=== PATIENT | female | born 1970 | race Caucasian/White ===

== ENCOUNTER 2023-06-09 20:16 | Observation (INO) ==
[2023-06-09] MEDS ORDERED: SODIUM CHLORIDE 0.9% 1000ML 1,000 ML IV SCH (20:53)
[2023-06-09 20:58] LABS: Basophils # (auto) 0.03 K/uL (0-0.2); Basophils % (auto) 0.4 %; Eosinophils # (auto) 0.29 K/uL (0-0.50); Eosinophils % (auto) 4.3 %; Hematocrit (blood only) 41.6 % (37.0-47.0); Hemoglobin 14.3 g/dl (12.0-16.0); Immature Granulocytes # (auto) 0.01 K/uL (0.01-0.20); Immature Granulocytes % (auto) 0.1 %; Lymphocytes % (auto) 33.9 %; Mean Corpuscular Hemoglobin 30.2 pg (25.0-34.0); Mean Corpuscular Hgb Conc 34.4 g/dL (32.0-36.0); Mean Corpuscular Volume 87.9 fL (80.0-100.0); Mean Platelet Volume 9.1 fL (9.4-12.4); Monocytes # (auto) 0.53 K/uL (0.11-0.59); Monocytes % (auto) 7.8 %; Neutrophils # (auto) 3.63 K/uL (1.40-6.50); Neutrophils % (auto) 53.5 %; Platelet Count 242 K/uL (130-400); RDW Coefficient of Variation 12.1 % (11.5-14.5); RDW Standard Deviation 39.3 fL (36.4-46.3); Red Blood Count 4.73 M/uL (4.20-5.40); White Blood Count 6.79 K/ul (4.8-10.8)
--- NOTE | 2023-06-09 21:12 | Emergency Department Note ---
History of Present Illness General Chief complaint: Abdominal Pain Stated complaint: LOWER RIGHT ABDOMINAL PAIN Time Seen by Provider: 06/09/23 20:28 History of Present Illness Maximum Pain Intensity: 4 Patient is a 52-year-old female with past medical history that is significant for hypertension and aortic dissection status post who presents the emergency department for evaluation of abdominal pain. She reports a constant, aching right lower quadrant kathleen pain that started yesterday morning. Repair she currently rates her pain a 4/10. Initially she thought it was from her IBS, but as the pain persisted she became more concerned. She reports feeling gassy and having a poor appetite, but no nausea or vomiting. No urinary symptoms. Stools are chronically loose status postcholecystectomy, and she denies any changes in this. She is postmenopausal. No fevers. She tried taking Tylenol for her pain. She had some instant mashed potatoes about 4 hours ago. Home Medications Medication Instructions Recorded Confirmed Type acetaminophen 500 mg tablet 1,000 mg PO Q6H PRN Pain 08/16/19 11/25/20 History (Tylenol Extra Strength) albuterol sulfate 90 mcg/actuation 2 puff inhalation Q4 PRN Wheezing 08/16/19 11/25/20 History aerosol inhaler (Ventolin HFA) aspirin 81 mg chewable tablet 81 mg PO DAILY 08/16/19 11/25/20 History (Children's Aspirin) carisoprodol 250 mg tablet (Soma) 250 mg PO UD PRN Muscle Pain 08/16/19 11/25/20 History docusate sodium 100 mg capsule 100 mg PO BID PRN Constipation 08/16/19 11/25/20 History (Col-Rite) metoprolol tartrate 100 mg tablet 100 mg PO Q12 08/16/19 11/25/20 History (Lopressor) amlodipine 5 mg tablet 5 mg PO DAILY 11/25/20 11/25/20 History fluticasone propionate 50 2 spray intranasal DAILY PRN Nasal 11/25/20 11/25/20 History mcg/actuation nasal Congestion spray,suspension (Flonase Allergy Relief) lisinopril 40 mg tablet 40 mg PO DAILY 11/25/20 11/25/20 History loratadine 10 mg tablet 10 mg PO DAILY PRN allergies 11/25/20 11/25/20 History omeprazole 40 mg capsule,delayed 40 mg PO DAILY PRN Acid Reflux 11/25/20 11/25/20 History release Allergies Allergy/AdvReac Type Severity Reaction Status Date / Time furosemide [From Lasix] AdvReac possible Verified 11/25/20 15:44 pancreatitis Past Med/Surg History Medical History Aortic dissection Hypertension Surgical History Mechanical heart 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 [employer] Feels Safe at Home: Yes Review of Systems A total of 10 systems reviewed and were otherwise negative Physical Exam Vital Signs Vital Signs - 24 hr 06/09/23 20:21 Temperature 36.9 C Temperature Source Temporal Artery Scan Pulse Rate 96 H Pulse Rhythm Regular Pulse Strength Normal Respiratory Rate 20 Respiratory Effort / Characteristics Non-Labored Spontaneous Respiratory Depth Normal Blood Pressure 144/86 H Blood Pressure Mean 105 Blood Pressure Position Sitting Pulse Oximetry 93 Oxygen Delivery Method Room Air Sepsis Recent Fever Within 48 Hours No Sepsis New/Unexplained Change in Mental Status N/A Sepsis Action Taken by Nursing No Action Required CONSTITUTIONAL: Well-appearing 52-year-old female who is awake and alert and in no acute distress laying on the gurney. EYES: Pupils equal, round, reactive to light and accommodation. EOMs intact without nystagmus. Sclera are anicteric. CARDIOVASCULAR: Regular rate and rhythm, systolic ejection murmur noted. Well- healed surgical scars. Peripheral pulses easy to palpable. RESPIRATORY: Breath sounds equal and clear to auscultation. GI: Bowel sounds are present. Abdomen is soft, obese, nontender to percussion throughout and tender to palpation with guarding in the right lower quadrant. MUSCULOSKELETAL: Full range of motion of extremities x 4 with good strength. No cyanosis, edema, joint tenderness or swelling. No deformity. INTEGUMENTARY: No lesions or rash, normal skin turgor. Course Course The patient was seen and assessed as above. External medical records were reviewed. She presents the emergency department for evaluation of right lower quadrant abdominal pain starting greater than 24 hours ago. IV lock was initiated and laboratory studies were collected. She was hydrated with normal saline solution. She was offered but declined medication for discomfort. CBC with differential, CMP, lipase and urinalysis were collected. CT scan of the abdomen and pelvis with IV contrast was obtained. Laboratory studies per my interpretation note a normal white count at 6700. No anemia, no left shift. No thrombocytopenia. No significant electrolyte imbalance noted. Renal functions are normal. Transaminases are not elevated and lipase is not indicative of acute pancreatitis. Urine microscopy is clear without signs of infection. CT scan per my interpretation and Stat Rad report notes the appendix to be upper limits of normal measuring 10 mm in diameter with possible surrounding inflammation representing a mild early acute appendicitis. No evidence for rupture or abscess. Scattered gas fluid levels within the nondilated colon suggest mild ileus or enteritis. No free air. The patient was reassessed. Laboratory studies and CT scan findings were discussed with her. Consultation was placed with general surgery, Dr. Alfonso, case also reviewed with ED case management social worker. Patient will be evaluated by general surgery for likely surgical intervention. COVID test was ordered per surgery request. Patient was updated at the bedside. Administered Medications Discontinued Medications Sodium Chloride (Nss 1000ml) 1,000 mls @ 999 mls/hr IV .Q1H1M [facility] Stop: 06/09/23 21:53 Last Infusion: 06/09/23 21:56 Dose: 0 mls/hr Documented By: Admin: 06/09/23 20:55 Dose: 999 mls/hr Documented By: JADA Ioversol (Optiray 350 500ml) 91 ml IV ONCE ONE Stop: 06/09/23 21:26 Last Admin: 06/09/23 21:26 Dose: 91 ml Documented By: RAMIN Medical Decision Making Differential Diagnosis Differential diagnoses considered included urinary tract infection, kidney stone, pyelonephritis, appendicitis, hernia, shingles, ovarian cyst, ovarian torsion, bowel obstruction, perforation, mass or malignancy, abscess, among others. Medical Records Attestation: I reviewed the patient's medical records. Home Medications Current Medication List: was personally reviewed by me Laboratory Data Attestation: I reviewed the patient's lab results. 06/09/23 20:40 06/09/23 20:40 Lab Results 06/09/23 06/09/23 06/09/23 Range/Units 20:40 20:40 20:45 WBC 6.79 (4.8-10.8) K/ul RBC 4.73 (4.20-5.40) M/uL Hgb 14.3 (12.0-16.0) g/dl Hct 41.6 (37.0-47.0) % MCV 87.9 (80.0-100.0) fL MCH 30.2 (25.0-34.0) pg MCHC 34.4 (32.0-36.0) g/dL RDW Std Deviation 39.3 (36.4-46.3) fL RDW Coeff of Alex 12.1 (11.5-14.5) % Plt Count 242 (130-400) K/uL MPV 9.1 L (9.4-12.4) fL Immature Gran % (Auto) 0.1 % Neut % (Auto) 53.5 % Lymph % (Auto) 33.9 % [place] % (Auto) 7.8 % Eos % (Auto) 4.3 % Baso % (Auto) 0.4 % Neut # (Auto) 3.63 (1.40-6.50) K/uL Lymph # (Auto) 2.30 (1.2-3.4) K/uL [place] # (Auto) 0.53 (0.11-0.59) K/uL Eos # (Auto) 0.29 (0-0.50) K/uL Baso # (Auto) 0.03 (0-0.2) K/uL Immature Gran # (Auto) 0.01 (0.01-0.20) K/uL Sodium 138 (136-145) mmol/L Potassium 3.9 (3.5-5.1) mmol/L Chloride 104 (98-107) mmol/L Carbon Dioxide 29 (21-32) mmol/L Anion Gap 5 (3-11) BUN 15 (6-23) mg/dl Creatinine 1.00 (0.6-1.2) mg/dl Est Cr Clr Drug Dosing 93.3 ml/min Est GFR ( Amer) 74.5 ml/min Est GFR (Non-Af Amer) 64.3 ml/min BUN/Creatinine Ratio 15.0 (10-20) Glucose 125 H (70-99(Fasting)) mg/dl Calcium 9.5 (8.6-10.3) mg/dl Total Bilirubin 0.5 (0.2-1.0) mg/dl AST 26 (13-39) U/L ALT 23 (7-52) U/L Alkaline Phosphatase 108 H (34-104) U/L Total Protein 7.5 (6.0-8.3) gm/dl Albumin 4.1 (3.4-5.0) gm/dl Globulin 3.4 (2.5-4.0) gm/dl Albumin/Globulin Ratio 1.2 (0.9-2) Lipase 53 (11-82) U/L Urine Color Yellow Urine Appearance Clear (Clear) Urine pH 7.0 (4.5-7.5) Ur Specific Edward 1.005 (1.000-1.030) Urine Protein Negative (Negative) Urine Glucose (UA) Negative (Negative) Urine Ketones Negative (Negative) Urine Blood Negative (Negative) Urine Nitrite Negative (Negative) Urine Bilirubin Negative (Negative) Urine Urobilinogen Negative (Negative) Ur Leukocyte Esterase Negative (Negative) Imaging Data Attestation: I personally reviewed and interpreted this imaging study as follows: Radiologist's Impression: Abdomen/Pelvis CT 06/09/23 20:29 CR Exam(s): CT ABDOMEN + PELVIS With Contrast IV Amt: OPTIRAY 350 91ML EXAM: CT Abdomen and Pelvis With Intravenous Contrast CLINICAL HISTORY: Reason for exam: RLQ ABD PAIN. TECHNIQUE: Axial computed tomography images of the abdomen and pelvis with intravenous contrast. CTDI is 28.14 mGy and DLP is 1492.82 mGy-cm. Automated exposure control was utilized for the study. A dose lowering technique was utilized adhering to the principles of ALARA. CONTRAST: Patient received OPTIRAY 350 91ML of IV contrast COMPARISON: November 25, 2020 FINDINGS: Lung bases: Unremarkable. No mass. No consolidation. ABDOMEN: Liver: Unremarkable. No mass. Gallbladder and bile ducts: Previous cholecystectomy. No biliary duct dilation is seen. Pancreas: Unremarkable. No mass. No ductal dilation. Spleen: Unremarkable. No splenomegaly. Adrenals: Partially calcified and atrophic right adrenal gland. Probable old hemorrhage. Kidneys and ureters: Unremarkable. No solid mass. No hydronephrosis. Stomach and bowel: Scattered gas fluid levels within nondilated colon suggesting mild ileus or enteritis. No focal bowel wall inflammation is seen. PELVIS: Appendix: The appendix is upper limits of normal measuring 10 mm in diameter. Possible slight surrounding inflammation could represent mild early acute appendicitis. No signs of rupture or abscess. Bladder: Unremarkable. No mass. Reproductive: Unremarkable as visualized. ABDOMEN and PELVIS: Intraperitoneal space: Unremarkable. No free air. No significant fluid collection. Bones/joints: Mild degenerative changes in the spine. No acute fracture or subluxation. Soft tissues: Unremarkable. Vasculature: Dissection of the distal thoracic and abdominal aorta, unchanged. Lymph nodes: Unremarkable. No enlarged lymph nodes. IMPRESSION: 1. The appendix is upper limits of normal measuring 10 mm in diameter. Possible slight surrounding inflammation could represent mild early acute appendicitis. No signs of rupture or abscess. 2. Scattered gas fluid levels within nondilated colon suggesting mild ileus or enteritis. No focal bowel wall inflammation is seen. Communications: Call Doctor Appendicitis Electronically signed by: Benedict Arcos MD 06/09/23 22:57 PM MDM Narrative See ED course. Impression & Plan Acute appendicitis Discharge Plan Visit Data Chief Complaint: Abdominal Pain Stated Complaint: LOWER RIGHT ABDOMINAL PAIN ED Provider: Yohan Veronica ED Midlevel Provider: Kyra Nelson Discharge Problem: Acute appendicitis Patient Disposition: Being Evaluated by Surgeon Forms Stand Alone Forms: My [facility] Prescriptions Prescriptions: No Action amlodipine 5 mg Tablet 5 mg PO DAILY omeprazole 40 mg capsule,delayed release(DR/EC) 40 mg PO DAILY PRN (Reason: Acid Reflux) lisinopril 40 mg tablet 40 mg PO DAILY fluticasone propionate [Flonase Allergy Relief] 50 mcg/actuation [place],Suspens ion 2 spray INTRANASAL DAILY PRN (Reason: Nasal Congestion) loratadine 10 mg Tablet 10 mg PO DAILY PRN (Reason: allergies) metoprolol tartrate [Lopressor] 100 mg tablet 100 mg PO Q12 docusate sodium [Col-Rite] 100 mg capsule 100 mg PO BID PRN (Reason: Constipation) aspirin [Children's Aspirin] 81 mg tablet,chewable 81 mg PO DAILY albuterol sulfate [Ventolin HFA] 90 mcg/actuation HFA aerosol inhaler 2 puff inhalation Q4 PRN (Reason: Wheezing) carisoprodol [Soma] 250 mg tablet 250 mg PO UD PRN (Reason: Muscle Pain) acetaminophen [Tylenol Extra Strength] 500 mg Tablet 1,000 mg PO Q6H PRN (Reason: Pain) Referrals Referrals: Oscar Jones MD [Primary Care Provider] -
[2023-06-09 21:15] LABS: Albumin Globulin Ratio 1.2 (0.9-2); Albumin Level 4.1 gm/dl (3.4-5.0); Bilirubin,Total 0.5 mg/dl (0.2-1.0); Calcium 9.5 mg/dl (8.6-10.3); Creatinine Clr Calc Pharmacy 93.3 ml/min; Est GFR (African American) 74.5 ml/min; Est GFR (Non-African American) 64.3 ml/min; Globulin 3.4 gm/dl (2.5-4.0); Potassium 3.9 mmol/L (3.5-5.1); Total Protein 7.5 gm/dl (6.0-8.3)
[2023-06-09 21:18] LABS: Appearance Urine Clear (Clear); Bilirubin Urine Negative (Negative); Blood Urine Negative (Negative); Color Urine Yellow; Glucose Urine UA Negative (Negative); Ketones Urine Negative (Negative); Leukocyte Esterase Urine Negative (Negative); Nitrite Urine Negative (Negative); Protein Urine Negative (Negative); Specific Gravity Urine 1.005 (1.000-1.030); Urobilinogen Urine Negative (Negative)
[2023-06-09] MEDS ORDERED: OPTIRAY 350 500ml IV ONE (21:25)
--- NOTE | 2023-06-09 22:58 | CT Scan Report ---
Exam(s): CT ABDOMEN + PELVIS With Contrast IV Amt: OPTIRAY 350 91ML EXAM: CT Abdomen and Pelvis With Intravenous Contrast CLINICAL HISTORY: Reason for exam: RLQ ABD PAIN. TECHNIQUE: Axial computed tomography images of the abdomen and pelvis with intravenous contrast. CTDI is 28.14 mGy and DLP is 1492.82 mGy-cm. Automated exposure control was utilized for the study. A dose lowering technique was utilized adhering to the principles of ALARA. CONTRAST: Patient received OPTIRAY 350 91ML of IV contrast COMPARISON: November 25, 2020 FINDINGS: Lung bases: Unremarkable. No mass. No consolidation. ABDOMEN: Liver: Unremarkable. No mass. Gallbladder and bile ducts: Previous cholecystectomy. No biliary duct dilation is seen. Pancreas: Unremarkable. No mass. No ductal dilation. Spleen: Unremarkable. No splenomegaly. Adrenals: Partially calcified and atrophic right adrenal gland. Probable old hemorrhage. Kidneys and ureters: Unremarkable. No solid mass. No hydronephrosis. Stomach and bowel: Scattered gas fluid levels within nondilated colon suggesting mild ileus or enteritis. No focal bowel wall inflammation is seen. PELVIS: Appendix: The appendix is upper limits of normal measuring 10 mm in diameter. Possible slight surrounding inflammation could represent mild early acute appendicitis. No signs of rupture or abscess. Bladder: Unremarkable. No mass. Reproductive: Unremarkable as visualized. ABDOMEN and PELVIS: Intraperitoneal space: Unremarkable. No free air. No significant fluid collection. Bones/joints: Mild degenerative changes in the spine. No acute fracture or subluxation. Soft tissues: Unremarkable. Vasculature: Dissection of the distal thoracic and abdominal aorta, unchanged. Lymph nodes: Unremarkable. No enlarged lymph nodes. IMPRESSION: 1. The appendix is upper limits of normal measuring 10 mm in diameter. Possible slight surrounding inflammation could represent mild early acute appendicitis. No signs of rupture or abscess. 2. Scattered gas fluid levels within nondilated colon suggesting mild ileus or enteritis. No focal bowel wall inflammation is seen. Communications: Call Doctor Appendicitis Electronically signed by: Benedict Arcos MD 06/09/23 22:57 PM
[2023-06-09] MEDS ORDERED: DEXAMETHASONE SOD INJ 4 MG/ML VIAL ONE (23:40)
[2023-06-09] MEDS ORDERED: fentaNYL citrate PF 100 MCG/2 ML VIAL ONE (23:40)
[2023-06-09] MEDS ORDERED: MIDAZOLAM HCL 1 MG/ML 2ML VIAL ONE (23:40)
[2023-06-09] MEDS ORDERED: PROPOFOL IV EMULSION 10 MG/ML 20 ML VIAL IV ONE (23:40)
[2023-06-09] MEDS ORDERED: LIDOCAINE 2% 2 ML VIAL/AMP(20MG/ML) INFIL ONE (23:40)
[2023-06-09] MEDS ORDERED: ONDANSETRON INJ 2 MG/ML 2 ML VIAL ONE (23:40)
[2023-06-09] MEDS ORDERED: ROCURONIUM BROMIDE 10 MG/ML 5 ML VIAL IV ONE (23:40)
[2023-06-09] MEDS ORDERED: SUCCINYLCHOLINE CHLORIDE 20 MG/ML 10 ML VIAL IV ONE (23:40)
[2023-06-09] MEDS ORDERED: HYDROmorphone INJ 1 MG/ML SYRINGE IV PRN (23:46)
[2023-06-09] MEDS ORDERED: ONDANSETRON INJ 2 MG/ML 2 ML VIAL IV PRN (23:46)
[2023-06-09] MEDS ORDERED: PROMETHAZINE HCL 6.25 MG in SODIUM CHLORIDE 0.9% 50 ML IV PRN (23:46)
[2023-06-09] MEDS ORDERED: ePHEDrine sulfate 50 MG/ML AMP IV PRN (23:46)
[2023-06-09] MEDS ORDERED: fentaNYL citrate PF 100 MCG/2 ML VIAL IV PRN (23:46)
[2023-06-09] MEDS ORDERED: ATROPINE SULFATE 0.1 MG/ML 10ML SYR IV PRN (23:46)
--- NOTE | 2023-06-09 23:47 | Anesthesiology Consultation ---
Date of Service June 09, 2023 Assessment & Plan (1) Encounter for pre-operative examination: Chart Review Chart Review: Acceptable Risk for Surgery and Patient NOT seen in Pre Admission Testing Consults Requested none History Surgery Operation Date: 06/09/23 23:35 Proposed Procedures p Laparoscopic Appendectomy - Cecil Alfonso MD Height/Weight Height: 5 ft 9 in Weight: 127.8 kg Allergies Allergy/AdvReac Type Severity Reaction Status Date / Time furosemide [From Lasix] AdvReac possible Verified 11/25/20 15:44 pancreatitis Medications Home Medications Medication Instructions Recorded Confirmed Last Taken acetaminophen 500 mg tablet 1,000 mg PO Q6H PRN Pain 08/16/19 11/25/20 Unknown (Tylenol Extra Strength) albuterol sulfate 90 mcg/actuation 2 puff inhalation Q4 PRN Wheezing 08/16/19 11/25/20 Unknown aerosol inhaler (Ventolin HFA) aspirin 81 mg chewable tablet 81 mg PO DAILY 08/16/19 11/25/20 Unknown (Children's Aspirin) carisoprodol 250 mg tablet (Soma) 250 mg PO UD PRN Muscle Pain 08/16/19 11/25/20 Unknown docusate sodium 100 mg capsule 100 mg PO BID PRN Constipation 08/16/19 11/25/20 Unknown (Col-Rite) metoprolol tartrate 100 mg tablet 100 mg PO Q12 08/16/19 11/25/20 Unknown (Lopressor) amlodipine 5 mg tablet 5 mg PO DAILY 11/25/20 11/25/20 Unknown fluticasone propionate 50 2 spray intranasal DAILY PRN Nasal 11/25/20 11/25/20 Unknown mcg/actuation nasal Congestion spray,suspension (Flonase Allergy Relief) lisinopril 40 mg tablet 40 mg PO DAILY 11/25/20 11/25/20 Unknown loratadine 10 mg tablet 10 mg PO DAILY PRN allergies 11/25/20 11/25/20 Unknown omeprazole 40 mg capsule,delayed 40 mg PO DAILY PRN Acid Reflux 11/25/20 11/25/20 Unknown release Past Medical History Medical History (Updated 06/09/23 @ 23:58 by Giovani Rice MD) Aortic dissection Encounter for pre-operative examination GERD (gastroesophageal reflux disease) Hypertension Exercise / Class Metabolic Activity II 4-5 Yardwork/Stairs/Walk up hill Past Family History Family History Father Aneurysm Past Surgical History Surgical History Mechanical heart 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 Paramjit Epic Valve and 28mm eva shield graft Social History Smoking Status: Never smoker Do You Dip or Chew Tobacco: No Hx Alcohol Use: No alcohol intake frequency: holidays/special occasions only Hx Substance Use: No substance use type: does not use Physical Exam Vital Signs Last Vital Signs Temp 36.9 C 06/09/23 20:21 Pulse 64 06/09/23 23:00 Resp 22 06/09/23 23:00 BP 149/96 H 06/09/23 23:00 Pulse Ox 97 06/09/23 23:00 O2 Del Method Room Air 06/09/23 23:00 Testing Laboratory Results 06/09/23 20:40 06/09/23 20:40 Urine Color Yellow 06/09/23 20:45 Urine Appearance Clear (Clear) 06/09/23 20:45 Urine pH 7.0 (4.5-7.5) 06/09/23 20:45 Ur Specific [place] 1.005 (1.000-1.030) 06/09/23 20:45 Urine Protein Negative (Negative) 06/09/23 20:45 Urine Glucose (UA) Negative (Negative) 06/09/23 20:45 Urine Ketones Negative (Negative) 06/09/23 20:45 Urine Nitrite Negative (Negative) 06/09/23 20:45 Ur Leukocyte Esterase Negative (Negative) 06/09/23 20:45 Electrocardiogram Date: 11/25/20 DICTATED BY:Geronimo Vargas MD Test Reason : Blood Pressure : / mmHG Vent. Rate : 057 BPM Atrial Rate : 057 BPM P-R Int : 156 ms QRS Dur : 092 ms QT Int : 418 ms P-R-T Axes : 042 022 025 degrees QTc Int : 406 ms Sinus bradycardia Incomplete right bundle branch block Borderline ECG When compared with ECG of 16-AUG-2019 20:02, Vent. rate has decreased BY 53 BPM Incomplete right bundle branch block is now Present Minimal criteria for Septal infarct are no longer Present Other Testing ADDENDUM ADDENDUM: 06/09/23 23:12 Call Doctor Regarding Appendicitis, called JOSE Nelson on 06/09 23:12 (-04:00) Electronically signed by: Benedict Arcos MD Electronically signed by: Benedict Arcos MD 06/09/23 22:57 PM ADDENDUM END Exam(s): CT ABDOMEN + PELVIS With Contrast IV Amt: OPTIRAY 350 91ML EXAM: CT Abdomen and Pelvis With Intravenous Contrast CLINICAL HISTORY: Reason for exam: RLQ ABD PAIN. TECHNIQUE: Axial computed tomography images of the abdomen and pelvis with intravenous contrast. CTDI is 28.14 mGy and DLP is 1492.82 mGy-cm. Automated exposure control was utilized for the study. A dose lowering technique was utilized adhering to the principles of ALARA. CONTRAST: Patient received OPTIRAY 350 91ML of IV contrast COMPARISON: November 25, 2020 FINDINGS: Lung bases: Unremarkable. No mass. No consolidation. ABDOMEN: Liver: Unremarkable. No mass. Gallbladder and bile ducts: Previous cholecystectomy. No biliary duct dilation is seen. Pancreas: Unremarkable. No mass. No ductal dilation. Spleen: Unremarkable. No splenomegaly. Adrenals: Partially calcified and atrophic right adrenal gland. Probable old hemorrhage. Kidneys and ureters: Unremarkable. No solid mass. No hydronephrosis. Stomach and bowel: Scattered gas fluid levels within nondilated colon suggesting mild ileus or enteritis. No focal bowel wall inflammation is seen. PELVIS: Appendix: The appendix is upper limits of normal measuring 10 mm in diameter. Possible slight surrounding inflammation could represent mild early acute appendicitis. No signs of rupture or abscess. Bladder: Unremarkable. No mass. Reproductive: Unremarkable as visualized. ABDOMEN and PELVIS: Intraperitoneal space: Unremarkable. No free air. No significant fluid collection. Bones/joints: Mild degenerative changes in the spine. No acute fracture or subluxation. Soft tissues: Unremarkable. Vasculature: Dissection of the distal thoracic and abdominal aorta, unchanged. Lymph nodes: Unremarkable. No enlarged lymph nodes. IMPRESSION: 1. The appendix is upper limits of normal measuring 10 mm in diameter. Possible slight surrounding inflammation could represent mild early acute appendicitis. No signs of rupture or abscess. 2. Scattered gas fluid levels within nondilated colon suggesting mild ileus or enteritis. No focal bowel wall inflammation is seen.
--- NOTE | 2023-06-09 23:48 | History & Physical Report ---
Date of Service June 09, 2023 Assessment & Plan (1) Acute appendicitis: Plan: Iv abx IVF to OR for lap appendectomy Present on Admission?: Yes (2) Hypertension: Plan: continue meds Hypertension type: essential hypertension Qualified Code(s): I10 - Essential (primary) hypertension History of Present Illness Primary Care Provider: Oscar Jones MD This is a 52-year-old female with acute abdominal pain which began yesterday, mainly RLQ. No significant radiation. She denies nausea or vomiting. She has a past medical history that is significant for hypertension and aortic dissection status post AVR. She reports feeling bloated and having a poor appetite. No urinary symptoms. Stools are chronically loose status postcholecystectomy, and she denies any changes in this. She is postmenopausal. No fevers. She tried taking Tylenol for her pain. She had some instant mashed potatoes about [address] scan shows eraly acute appendicitis. Allergies Allergy/AdvReac Type Severity Reaction Status Date / Time furosemide [From Lasix] AdvReac possible Verified 11/25/20 15:44 pancreatitis Home Medications Medication Instructions Recorded Confirmed Type acetaminophen 500 mg tablet 1,000 mg PO Q6H PRN Pain 08/16/19 11/25/20 History (Tylenol Extra Strength) albuterol sulfate 90 mcg/actuation 2 puff inhalation Q4 PRN Wheezing 08/16/19 11/25/20 History aerosol inhaler (Ventolin HFA) aspirin 81 mg chewable tablet 81 mg PO DAILY 08/16/19 11/25/20 History (Children's Aspirin) carisoprodol 250 mg tablet (Soma) 250 mg PO UD PRN Muscle Pain 08/16/19 11/25/20 History docusate sodium 100 mg capsule 100 mg PO BID PRN Constipation 08/16/19 11/25/20 History (Col-Rite) metoprolol tartrate 100 mg tablet 100 mg PO Q12 08/16/19 11/25/20 History (Lopressor) amlodipine 5 mg tablet 5 mg PO DAILY 11/25/20 11/25/20 History fluticasone propionate 50 2 spray intranasal DAILY PRN Nasal 11/25/20 11/25/20 History mcg/actuation nasal Congestion spray,suspension (Flonase Allergy Relief) lisinopril 40 mg tablet 40 mg PO DAILY 11/25/20 11/25/20 History loratadine 10 mg tablet 10 mg PO DAILY PRN allergies 11/25/20 11/25/20 History omeprazole 40 mg capsule,delayed 40 mg PO DAILY PRN Acid Reflux 11/25/20 11/25/20 History release Past Med/Surg History Medical History Aortic dissection Hypertension Surgical History Mechanical heart 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 [employer] Feels Safe at Home: Yes Review of Systems + anorexia; no fever and no chills no problem reported no problem reported no cough and no dyspnea no chest pain + abdominal pain and + bloating; no nausea, no vomiting and no change in bowel habits no dysuria no back pain and no joint pain no problem reported no localized weakness and no generalized weakness no behavioral changes no fatigue no easy bleeding and no easy bruising Physical Exam Constitutional: WD/WN, vitals as above Eyes: PERRL, conjunctivae normal, anicteric sclerae ENMT: external ear and nose normal, oropharynx normal Neck: trachea midline Respiratory: normal respiratory effort, lungs clear to auscultation Cardiovascular: Rate/Rhythm: regular rate and regular rhythm Heart Sounds: + murmur Gastrointestinal (Abdomen): Inspection/Auscultation: abdomen normal to inspection and normal bowel sounds; abdomen not distended Percussion/Palpation: + abdomen tender and abdomen soft; no guarding and abdomen not rigid Musculoskeletal: Head/Neck/Chest: normocephalic and head atraumatic Skin: no rashes, warm and dry Psychiatric: Orientation: alert and oriented x 3 ASA Classification ASA ASA2E Results & Data Vital Signs (Past 12 Hours) Vital Signs Temp Pulse Pulse Resp BP BP Pulse Ox 06/09/23 23:00 64 22 149/96 H 97 06/09/23 20:21 36.9 C 96 H 20 144/86 H 93 O2 Del Method 06/09/23 23:00 Room Air 06/09/23 20:21 Room Air Diagnostic Findings EXAM: CT Abdomen and Pelvis With Intravenous Contrast CLINICAL HISTORY: Reason for exam: RLQ ABD PAIN. TECHNIQUE: Axial computed tomography images of the abdomen and pelvis with intravenous contrast. CTDI is 28.14 mGy and DLP is 1492.82 mGy-cm. Automated exposure control was utilized for the study. A dose lowering technique was utilized adhering to the principles of ALARA. CONTRAST: Patient received OPTIRAY 350 91ML of IV contrast COMPARISON: November 25, 2020 FINDINGS: Lung bases: Unremarkable. No mass. No consolidation. ABDOMEN: Liver: Unremarkable. No mass. Gallbladder and bile ducts: Previous cholecystectomy. No biliary duct dilation is seen. Pancreas: Unremarkable. No mass. No ductal dilation. Spleen: Unremarkable. No splenomegaly. Adrenals: Partially calcified and atrophic right adrenal gland. Probable old hemorrhage. Kidneys and ureters: Unremarkable. No solid mass. No hydronephrosis. Stomach and bowel: Scattered gas fluid levels within nondilated colon suggesting mild ileus or enteritis. No focal bowel wall inflammation is seen. PELVIS: Appendix: The appendix is upper limits of normal measuring 10 mm in diameter. Possible slight surrounding inflammation could represent mild early acute appendicitis. No signs of rupture or abscess. Bladder: Unremarkable. No mass. Reproductive: Unremarkable as visualized. ABDOMEN and PELVIS: Intraperitoneal space: Unremarkable. No free air. No significant fluid collection. Bones/joints: Mild degenerative changes in the spine. No acute fracture or subluxation. Soft tissues: Unremarkable. Vasculature: Dissection of the distal thoracic and abdominal aorta, unchanged. Lymph nodes: Unremarkable. No enlarged lymph nodes. IMPRESSION: 1. The appendix is upper limits of normal measuring 10 mm in diameter. Possible slight surrounding inflammation could represent mild early acute appendicitis. No signs of rupture or abscess. 2. Scattered gas fluid levels within nondilated colon suggesting mild ileus or enteritis. No focal bowel wall inflammation is seen.
[2023-06-09] MEDS ORDERED: cefOXitin 2,000 MG/60 ML BAG IV STA (23:53)
[2023-06-09] MEDS ORDERED: BUPIVACAINE/EPINEPHRINE 0.5% MPF 1:200,000 30 ML VIAL ONE (23:59)
[2023-06-10] MEDS ORDERED: SUGAMMADEX SODIUM 200 MG/2 ML VIAL IV ONE (00:40)
[2023-06-10] MEDS ORDERED: BUPIVACAINE/EPINEPHRINE 0.5% MPF 1:200,000 10 ML VIAL INFIL ONE (00:56)
--- NOTE | 2023-06-10 01:05 | Operative Report ---
Post Operative Report Pre & Post Diagnosis Operation Date: 06/09/23 23:35 <No data on this case meets the specified criteria> I identified the patient and participated in the time-out.: Yes Procedure Laparoscopic appendectomy Operation Date: 06/09/23 23:35 <No data on this case meets the specified criteria> Surgeon Cecil Alfonso MD Phonograph Needle Tip Maker none Estimated Blood Loss 10 Findings Consistent with Post-Op Diagnosis Acute appendicitis Specimens Appendix to pathology Drains None Anesthesia Type General Complications None Indications This is a 49-year-old 52-year-old female who came in with 1 day of abdominal pain. A CT scan was done which showed an early acute appendicitis with inflammatory changes. She had a tenderness in her right lower quadrant. We recommended a laparoscopic appendectomy. I went over the risks of bleeding infection and possible reoperation. Description of Procedure The patient was taken to the OR and underwent excellent general anesthesia. Her abdomen was prepped and draped in normal sterile fashion. Sterile transverse supraumbilical incision was made, towel clamps were used to create tension on the abdominal wall. A varies needle was inserted into his peritoneal cavity. Good pneumoperitoneum was achieved to about 15 mmHg pressure. Once this was done visualized 11 port was placed in the supraumbilical position. A 11mm left lower quadrant port , a 5mm suprapubic port , and a 5mm right upper quadrant port were placed in normal fashion. Patient was then placed in head down and rolled to the left. Good diagnostic lap was performed. She had obvious acute appendicitis. The cecum was grasped with an atraumatic grasper. A grasper was then placed was then used to grasp the tip of the appendix. The mesoappendix was splayed open and a harmonic scalpel was used to take down the mesoappendix. This was taken down to the base of the appendix. Once this was identified an Endo JESUS stapler was used to transect the appendix at its base. A Endobag was then inserted through the left lower quadrant port, the appendix was placed and then brought out through the left lower quadrant port. Appendix sent for pathologic valuation. Pneumoperitoneum and the port reestablished. A liter of saline was then used to irrigate the right lower quadrant. There was no active bleeding no other abnormalities were noted in the abdomen. Patient was then placed back and head down the ports were removed the needle and the and was then decompressed. The 12 port fascia was then closed using a 0 Vicryl. The skin was then anesthetized with 0.5% Marcaine with epinephrine local. Interrupted Vicryl is used to close the skin. Steri-Strips and benzoin were used to reinforce the incisions. Sterile dressings were applied. Patient tolerated pr ocedure without complication was sent to the postop recovery period of observation. He will be sent to the floor for the rest of his care. I attest to the content of the Intraoperative Record and any orders documented therein. Any exceptions are noted below.
--- NOTE | 2023-06-10 01:25 | Anesthesiology Progress Note ---
Date of Service June 10, 2023 Anesthesia Post Procedure Vital Signs Vital Signs: Temp Pulse Pulse Resp BP BP Pulse Ox 06/09/23 23:00 64 22 149/96 H 97 06/09/23 20:21 36.9 C 96 H 20 144/86 H 93 O2 Del Method 06/09/23 23:00 Room Air 06/09/23 20:21 Room Air Transfer of Care Handoff Completed per policy Notes Mental Status: alert / awake / arousable and participated in evaluation Patient Amnestic to Procedure: Yes Nausea / Vomiting: adequately controlled Pain: adequately controlled Airway Patency, RR, SpO2: stable & adequate BP & HR: stable & adequate Hydration State: stable & adequate Anesthetic Complications: no major complications apparent and Pt Satisfied with anesthetic care
[2023-06-10] MEDS ORDERED: MoRPHine SULFATE 2 MG/ML CARP IV PRN (02:20)
[2023-06-10] MEDS ORDERED: ONDANSETRON INJ 2 MG/ML 2 ML VIAL IV PRN (02:20)
[2023-06-10] MEDS ORDERED: LACTATED RINGER'S 1,000 ML IV SCH (02:20)
[2023-06-10] MEDS ORDERED: KETOROLAC TROMETHAMINE 15 MG/ML VIAL IV PRN (02:20)
[2023-06-10] MEDS ORDERED: MoRPHine SULFATE 4 MG/ML 1 ML CARP\\VIAL IV PRN (02:20)
[2023-06-10] MEDS ORDERED: oxyCODONE/ACETAMINOPHEN 5mg/325mg TAB PO PRN ×2 (02:20)
[2023-06-10] MEDS: cefOXitin 2,000 MG in DEXTROSE 5% 50 ML IV SCH ×2 (06:21→11:10)
[2023-06-10] MEDS ORDERED: PANTOprazole 40 MG TAB PO SCH (06:30)
[2023-06-10 07:07] LABS: iSTAT Hemoglobin 14.6 g/dl (12.0-16.0); iSTAT Ionized Calcium 1.22 mmol/l (1.12-1.32); iSTAT Potassium 3.9 mmol/L (3.3-5.0)
[2023-06-10] MEDS ORDERED: amLODIPine BESYLATE 5 MG TAB PO SCH (09:00)
[2023-06-10] MEDS ORDERED: lisinopril 40 MG TAB PO SCH (09:00)
[2023-06-10] MEDS ORDERED: ASPIRIN 81 MG CHEW PO SCH (09:00)
[2023-06-10] MEDS ORDERED: METOPROLOL TARTRATE 100 MG TAB PO SCH (09:00)
--- NOTE | 2023-06-10 12:17 | Discharge Summary ---
Date of Service June 10, 2023 Admission HPI Per Admitting Provider This is a 52-year-old female with acute abdominal pain which began yesterday, mainly RLQ. No significant radiation. She denies nausea or vomiting. She has a past medical history that is significant for hypertension and aortic dissection status post AVR. She reports feeling bloated and having a poor appetite. No urinary symptoms. Stools are chronically loose status postcholecystectomy, and she denies any changes in this. She is postmenopausal. No fevers. She tried taking Tylenol for her pain. She had some instant mashed potatoes about [address] scan shows eraly acute appendicitis. Principal Diagnosis Acute appendicitis Discharge Exam Constitutional WD/WN, vitals as above + obese, cooperative and comfortable; no acute distress and not ill appearing Respiratory normal respiratory effort; no respiratory distress Gastrointestinal (Abdomen) Inspection/Auscultation: abdomen normal to inspection and + abdominal surgical incision (covered with surgical dressings, clean/dry/intact mild spotting present); abdomen not distended and + abnormal bowel sounds Percussion/Palpation: + abdomen tender (RLQ on deep palpation and at incision sites) and abdomen soft; no guarding, abdomen not rigid and abdomen not firm Skin no rashes, warm and dry Psychiatric A+Ox3, euthymic affect Discharge Data Allergies Allergy/AdvReac Type Severity Reaction Status Date / Time furosemide [From Lasix] AdvReac possible Verified 11/25/20 15:44 pancreatitis Procedures Performed Operation Date: 06/09/23 23:35 Actual Procedures p Laparoscopic Appendectomy(Not Applicable) - Cecil Alfonso MD Ordered Studies 06/09/23 20:29 CT abd pelvis IV con only Stat Hospital Course (1) Acute appendicitis: Patient taken to operating room for laparoscopic appendectomy from emergency department by Dr. Alfonso on 06/10/2023. She was found to have acute appendicitis without perforation or abscess. Patient tolerated procedure without difficutly and was transferred to recovery room then to medical/surgical floor for postoperative care. Diet advanced to clears then to regular diet. IV Fluids and IV antibiotics were continued. Activity as tolerated. PO Percocet prn pain. POD # 0, avss, postop pain controlled with oral Percocet, tolerated clear liquids, no n,v. Patient was discharged home in afternoon once tolerating regular diet and ambulating hallway. (2) Hypertension: she was hypertensive preoperatively likely secondary to pain. VSS postoperatively. Total Time Total Time Spent Total Time Spent (In Minutes): 30 Total Time Includes: Examination of the Patient, Discharge Planning, Medication Reconciliation and Communication With Other Providers Discharge Plan Discharge Items Patient Disposition: Home - Self-Care Reason For Visit: APPENDICITIS Discharge Diagnosis: Acute appendicitis Activity: Per Instructions section Non-emergency contact: Primary Care Provider and Surgeon Call non-emergency contact if: you have any medication questions, your pain is not controlled, your pain is worsening, your pain is concerning for you, you have a fever, your temperature is above 101, your wound has increased redness, your wound has increased drainage and your wound pain has increased Follow-up/Referrals: Oscar Jones MD [Primary Care Provider] - Saira Noel PA-C [Physician Firearms Model Maker] - (Follow-up Dr. Alfonso or Saira Noel PA-C in 2 weeks) Diet: Regular Addtl Attending Provider Instructions: Post-Surgical ~Discharge Instructions Activity Recommendations: - lifting limitation: (20 pounds for 4 weeks), - exercise/sex/sports limit: (nonstrenuous for 2 weeks), - driving or machine use limit: (none for 1 week or until pain free and no longer taking narcotic pain medication), - Shower/bathe limit: (may shower beginning tomorrow) Diet: - Resume previous diet SPECIAL CARE INSTRUCTIONS: - May shower Saturday morning. Let water run over area and pat dry. - Leave steri strips on for one week and then remove. They may fall off on their own that is okay. - Call the surgeon's office with any questions or concerns - - (ex. temperature higher than 101 degrees F, excessive bleeding or pain). MEDICATIONS: - Resume previous medications unless instructed otherwise by your surgeon. - May alternate extra strength Tylenol and Ibuprofen as needed for mild to moderate pain -650 mg Tylenol every 6 hours as needed - Ibuprofen 600 mg every 6 hours as needed (take with food) - Percocet 1 every 6 hours, as needed for moderate to severe pain - Recommend daily stool softener (Colace, [id number]) to prevent constipation and straining while taking Percocet. Drink plenty of water daily. Can increase to twice a day if having some hard stools. FOLLOW UP VISIT: - If not already scheduled, please call the office to schedule a two week follow-up appointment. Office number Pending Studies at Discharge: Yes (appendix pathology, will be reviewed at postop visit) Stand-Alone Forms: [facility], Work/School Release, Smoking Cessation Medications and DC Order Prescriptions: New oxycodone-acetaminophen 5-325 mg tablet 1 tab PO Q6H PRN (Reason: pain) Qty: 10 0RF Continued amlodipine 5 mg Tablet 5 mg PO DAILY omeprazole 40 mg capsule,delayed release(DR/EC) 40 mg PO DAILY PRN (Reason: Acid Reflux) lisinopril 40 mg tablet 40 mg PO DAILY fluticasone propionate [Flonase Allergy Relief] 50 mcg/actuation [place],Suspension 2 spray INTRANASAL DAILY PRN (Reason: Nasal Congestion) loratadine 10 mg Tablet 10 mg PO DAILY PRN (Reason: allergies) metoprolol tartrate [Lopressor] 100 mg tablet 100 mg PO Q12 docusate sodium [Col-Rite] 100 mg capsule 100 mg PO BID PRN (Reason: Constipation) aspirin [Children's Aspirin] 81 mg tablet,chewable 81 mg PO DAILY albuterol sulfate [Ventolin HFA] 90 mcg/actuation HFA aerosol inhaler 2 puff inhalation Q4 PRN (Reason: Wheezing) carisoprodol [Soma] 250 mg tablet 250 mg PO UD PRN (Reason: Muscle Pain) acetaminophen [Tylenol Extra Strength] 500 mg Tablet 1,000 mg PO Q6H PRN (Reason: Pain) Discharge Orders: Discharge Order (Routine); Ordered 06/10/23 Ordered By: Saira Noel Admission Data Admit Date/Time: 06/10/23 01:09 Attending Provider: Cecil Alfonso Admit Provider: Cecil Alfonso Primary Care Provider: Oscar Jones
== END 2023-06-10 14:40 | disposition home or self-care (01) ==
LOC: 3N 20:16 → ED 20:16 → 3N 06-10 00:10